=== PATIENT | male | born 1995 | race Two or more races ===

== ENCOUNTER 2018-05-11 08:28 | Inpatient (IN) | payer BC ==
[~2018-05-11] VITALS: Ht 172.7 cm; Wt 72.6 kg
[2018-05-11] VITALS (8 sets, daily range): BP systolic 104–116; BP diastolic 62–68
--- NOTE | 2018-05-11 08:42 | NUR ---
BIB SELF 23 YEAR OLD C/O LOWER ABDOMINAL PAIN SINCE YESTERDAY AM, UNABLE TO PASS AMA, TAKES LAXATIVE W/ NO RELIEF. ALERT AND ORIENTED X4, BREATHING EVEN AND UNLABORED WITH NO DISTRESS NOTED. SKIN WARM TO TOUCH AND INTACT. AWAITING TO BE SEEN BY
[2018-05-11] MEDS ORDERED: ONDANSETRON 4 MG TAB.RAPDIS PO ONE (09:00)
[2018-05-11] MEDS ORDERED: ONDANSETRON 4 MG TAB.RAPDIS ONE (09:02)
[2018-05-11 09:10] LABS: BASOPHILS % (AUTO) 0.2 % (0.0-2.0); HEMATOCRIT 50 % (39-51); HEMOGLOBIN 16.9 g/dL (13.5-17.5); LYMPHOCYTES # (AUTO) 1.3 /CMM (0.8-4.8); LYMPHOCYTES % (AUTO) 11.5 % (20.0-44.0); MEAN CORPUSCULAR HGB CONC 34 g/dl (31.0-36.0); MEAN CORPUSCULAR VOLUME 90 fL (80-96); MONOCYTES # (AUTO) 0.9 /CMM (0.1-1.30); MONOCYTES % (AUTO) 7.8 % (2.0-12.0); NEUTROPHILS # (AUTO) 9.2 /CMM (1.8-8.9); NEUTROPHILS % (AUTO) 80.5 % (43.0-81.0); PLATELET COUNT (AUTO) 221 /CMM (150-450); RED BLOOD CELL COUNT(AUTO) 5.53 MIL/uL (4.5-6.0); WHITE BLOOD COUNT (AUTO) 11.4 K/uL (4.3-11.0)
[2018-05-11 09:22] LABS: CALCIUM, SERUM 9.4 mg/dL (8.5-10.1); CREATININE 1.4 mg/dL (0.6-1.3); POTASSIUM 3.7 mmol/L (3.5-5.1)
--- NOTE | 2018-05-11 09:50 | NUR ---
FLORAL ASSISTANT AT BEDSIDE TO TAKE PATIENT FOR CT SCAN
[2018-05-11] MEDS ORDERED: IV NS 0.9% 1,000 ML BAG IV ONE (10:30)
--- NOTE | 2018-05-11 10:40 | NUR ---
CALLED SURGERY ITS DR. IQBAL
--- NOTE | 2018-05-11 11:08 | NUR ---
Nic hairrachele in [facility] - 05/11/18 at 1112 by VERÓNICA REPORT GIVEN TO MICHELLE PATIENT WILL BE GOING TO ROOM 209
[2018-05-11] MEDS ORDERED: IV NS 0.9% 1,000 ML IV PRN (11:24)
--- NOTE | 2018-05-11 11:27 | NUR ---
REPORT GIVEN TO MICHELLE, PATIENT WILL BE GOING TO MED/SURG
[2018-05-11] MEDS ORDERED: ONDANSETRON HCL/PF 4 MG/2 ML VIAL IVP PRN (11:30)
[2018-05-11] MEDS ORDERED: Z GUARD REMEDY 2 OZ OINT TP PRN (11:30)
[2018-05-11] MEDS ORDERED: HYDROMORPHONE INJ 2 MG/ML DISP.SYRIN IV PRN ×3 (12:00→15:00)
[2018-05-11] MEDS ORDERED: PIPERACILLIN /TAZOBACTAM 3.375 G in IV D5W 50 ML IV SCH ×4 (12:00)
--- NOTE | 2018-05-11 12:00 | NUR ---
MS/RN New admission New admission from emergency with diagnoses of acute appendicitis. Patient fully admitted and prepared for surgery which is scheduled at 1300.
[2018-05-11] MEDS ORDERED: FENTANYL PF 100MCG/2ML AMPUL ONE (12:55)
[2018-05-11] MEDS ORDERED: MIDAZOLAM HCL 2 MG/2ML VIAL ONE (12:56)
[2018-05-11] MEDS ORDERED: ROCURONIUM BROMIDE 50 MG/5 ML ONE (12:56)
--- NOTE | 2018-05-11 12:58 | NUR ---
MS/RN OR Patient taking to operating room, chart with patient.
[2018-05-11] MEDS ORDERED: ANESTHESIA TRAY IN PYXIS 1 EA TRAY MC ONE (13:04)
[2018-05-11] MEDS ORDERED: HYDROMORPHONE INJ 2 MG/ML DISP.SYRIN ONE (14:27)
[2018-05-11] MEDS ORDERED: IV LR 1000 ML 1,000 ML IV PRN (15:00)
[2018-05-11] MEDS: HYDROCODONE/APAP 5/325MG 1 EACH TABLET PO PRN ×2 (17:58→23:22)
[2018-05-11] MEDS: diphenhydrAMINE HCL 25 MG CAPSULE PO PRN ×2 (18:11→23:19)
[2018-05-11] MEDS: PIPERACILLIN /TAZOBACTAM 3.375 G in IV D5W 100 ML IV SCH (20:55)
--- NOTE | 2018-05-11 23:25 | NUR ---
MSRN VERBALIZES ABD LAP SITES PAIN, NORCO 1 TAB PO ADMINISTERED.
--- NOTE | 2018-05-12 02:29 | NUR ---
MSRN SLEEPING APPEARS COMFORTABLE. CLOSELY WATCHED
[2018-05-12] MEDS: PIPERACILLIN /TAZOBACTAM 3.375 G in IV D5W 100 ML IV SCH ×2 (05:44→13:52)
[2018-05-12] MEDS: HYDROCODONE/APAP 5/325MG 1 EACH TABLET PO PRN ×3 (06:32→15:35)
[2018-05-12] MEDS: diphenhydrAMINE HCL 25 MG CAPSULE PO PRN ×3 (06:32→15:30)
[2018-05-12 06:38] LABS: APPEARANCE,URINE CLEAR (CLEAR); BILIRUBIN,URINE NEGATIVE (NEGATIVE); BLOOD, URINE 1+ Ery/uL (NEGATIVE); COLOR,URINE YELLOW (YELLOW); KETONES,URINE NEGATIVE (NEGATIVE); LEUKOCYTE ESTERASE ,URINE NEGATIVE (NEGATIVE); NITRITE, URINE NEGATIVE (NEGATIVE); PROTEIN,URINE NEGATIVE (NEGATIVE); UGLUCOSE NEGATIVE (NEGATIVE); UROBILINOGEN,URINE 0.2 EU/dL (0.2)
[2018-05-12 06:40] LABS: BASOPHILS % (AUTO) 0.2 % (0.0-2.0); EOSINOPHILS % (AUTO) 0.2 % (0.0-6.0); HEMATOCRIT 43 % (39-51); HEMOGLOBIN 14.5 g/dL (13.5-17.5); LYMPHOCYTES # (AUTO) 1.5 /CMM (0.8-4.8); LYMPHOCYTES % (AUTO) 18.4 % (20.0-44.0); MEAN CORPUSCULAR HGB CONC 34 g/dl (31.0-36.0); MEAN CORPUSCULAR VOLUME 91 fL (80-96); MONOCYTES # (AUTO) 0.8 /CMM (0.1-1.30); MONOCYTES % (AUTO) 9.3 % (2.0-12.0); NEUTROPHILS % (AUTO) 71.9 % (43.0-81.0); PLATELET COUNT (AUTO) 194 /CMM (150-450); RED BLOOD CELL COUNT(AUTO) 4.69 MIL/uL (4.5-6.0); WHITE BLOOD COUNT (AUTO) 8.3 K/uL (4.3-11.0)
--- NOTE | 2018-05-12 06:41 | NUR ---
MSRN ABDOMINAL LAP SITES PAIN, NORCO 1 TAB WITH BENADRYL 25 MG PO ADMINISTERED BEDREST INSTRUCTED.
[2018-05-12 06:56] LABS: CALCIUM, SERUM 8.2 mg/dL (8.5-10.1); CREATININE 1.2 mg/dL (0.6-1.3); MAGNESIUM 1.7 mg/dL (1.8-2.4); PHOSPHORUS 4.4 mg/dL (2.5-4.9); POTASSIUM 3.7 mmol/L (3.5-5.1)
[2018-05-12 06:57] LABS: BACTERIA,URINE None seen /HPF (None Seen); SQUAMOUS EPITHELIAL CELL,UR 0-2 /HPF (None Seen); WBC,URINE 0-2 /HPF (0-3)
[2018-05-12 07:01] LABS: THYROID STIMULATING HORMONE 0.031 uIU/mL (0.358-3.74)
[2018-05-12 08:35] VITALS: BP 108/65
--- NOTE | 2018-05-12 08:46 | NUR ---
MS WAGNER INITIAL NOTES Patient is awake, sitting up in bed, had breakfast tolerated soft diet, denies nausea, no vomiting. Abd lap site C/D/I, patient reports passing gas. Maintained safety, will cont to monitor.
[2018-05-12] MEDS ORDERED: PANTOPRAZOLE 40 MG VIAL IV SCH (09:00)
[2018-05-12] MEDS: Magnesium 1GM/D5W 100ML PREMIX 100 ML IV SCH ×2 (10:45→11:57)
--- NOTE | 2018-05-12 16:00 | NUR ---
MS RN DISCHARGED Called Dr. Madison/surgery, cleared patient to go home with no antibiotic needed to take at home per MD, and to follow up in his office, call for appointment. Informed MANAGER PERSONAL Marin Dey. Discharge instruction, prescription pain medication, antiemetic given and explained to patient, verbalized understanding. Abdomen lap site C/D/I. Patient is aware to follow up with Dr. Madison and with his Primary care physician in 1 week. Patient left hosp in stable condition via private car accompanied by his friend.
[2018-05-12 16:23] VITALS: BP 123/76
== END 2018-05-12 16:00 | disposition home or self-care (01) | DRG 339 ==
LOC: ER 08:34 → MEDSG2 11:15
PROVIDERS: ADMIT Registered Nurse; ATTEND Nurse Practitioner Acute Care
PROC: 0DTJ4ZZ Resection of Appendix, Percutaneous Endoscopic Approach (ICD-10-PCS; principal; 2018-05-11)
DX: K35.33 Acute appendicitis with perforation, localized peritonitis, and gangrene, with abscess (principal); N17.9 Acute kidney failure, unspecified; Z88.6 Allergy status to analgesic agent; Z88.5 Allergy status to narcotic agent; K56.41 Fecal impaction; E83.42 Hypomagnesemia
CPT/HCPCS: 36415; 80048-TC; 80061-TC; 81000-TC; 83690-TC; 83735-TC; 84100-TC; 84443-TC; 85025-TC; 87081-TC; 88304-TC; A6403; C9113; G0378; J1100; J1170; J1885; J2250; J2405; J2543; J2704; J2710; J3010; J3475; J3490; J7030; J7060; J7120; Q0162; Q0163

== ENCOUNTER 2020-02-04 22:33 | Emergency (ER) | payer BC ==
[~2020-02-04] VITALS: Ht 175.3 cm; Wt 70.3 kg
[2020-02-04 22:35] VITALS: BP 133/80
--- NOTE | 2020-02-04 23:20 | NUR ---
XRAY AT BEDSIDE
== END 2020-02-05 00:10 | disposition home or self-care (01) ==
LOC: ER 22:33
DX: U07.1 COVID-19 (principal)
CPT/HCPCS: 71045-TC